=== PATIENT | female | born 1990 | race Caucasian/White ===

== ENCOUNTER → 2018-03-17 | Outpatient (CLI) | payer BC ==
[~2018-03-17] MED LIST: /MOM400 PO; ACET50TA PO; ANUS2.5C2 EXT; DOCU10ELUD PO; IBUP600T26 PO; PRENTAB16 PO
--- NOTE | 2018-03-17 12:51 | REP ---
Obstetric sonography: History: Supervision of for anatomy. Findings: Scanning through the gravid uterus demonstrates a viable single intrauterine gestation in a footling breech lie. motion is observed and heart rate is recorded at 150 beats per minute. A posterior grade 0 placenta is seen without evidence of previa or abruption. Amniotic fluid is subjectively normal. Closed cervical length measures 4.1 cm. No extrauterine abnormalities observed. Myometrial contractions during the examination render it difficult to evaluate the inferior edge of the placenta in relation to the internal cervical os. Closed cervical length is 4.1 cm Facial profile is seen but nose and lips are less than optimally seen due to position. Four-chamber heart, outflow tract views, and diaphragm visualization is less than optimal as well. The following additional anatomic structures are identified in the fetus and felt to be unremarkable: cranium, choroid plexus, cavum, cerebellum and posterior fossa, lungs, left-sided stomach, abdominal wall cord insertion, three-vessel umbilical cord, kidneys and bladder, spine, upper and lower extremities. Biometry chart: BPD 4.0 cm = 18 weeks 1 day Head circumference 14.5 cm = 17 weeks 5 days Abdominal circumference 12.4 cm = 18 weeks 0 days Femur length 2.5 cm = 17 weeks 5 days Humeral length 2.5 cm = 18 weeks 1 day HC/AC ratio normal 1.17. Cephalic index normal 0.77. Estimated weight 213 grams, 0 pounds 7 ounces, 42nd percentile for 18 weeks 0 days. Impression: Viable single intrauterine gestation at 18 weeks 0 days by today's composite sonographic criteria. MAYO by today's sonography August 18, 2018. anatomic survey less than complete as above due to position. Footling breech. Uterine myometrial contractions during the exam. Electronically Signed by Sanchez Delvalle MD 03/17/2018 07:14 P
== END ==
LOC: M RAD 09:26
PROVIDERS: ATTEND Obstetrics & Gynecology
DX: Z34.82 Encounter for supervision of other normal pregnancy, second trimester (principal)

== ENCOUNTER → 2018-04-06 | Outpatient (CLI) | payer BC ==
[2018-04-06 14:44] LABS: ALT/SGPT 33 U/L (12-78); BILIRUBIN,TOTAL 0.3 MG/DL (0.2-1.0); CREATININE FOR GFR 0.45 MG/DL (0.55-1.30); GLOMERULAR FILTRATION RATE > 60.0 (>60); URIC ACID 3.8 MG/DL (2.6-6.0)
[2018-04-06 15:18] LABS: TOTAL PROTEIN,RANDOM URINE 20.2 MG/DL (0.0-12.0)
[2018-04-06 15:21] LABS: LDH LACTATE DEHYDROGENASE 145 U/L (84-246)
== END ==
LOC: M SMT 09:43
PROVIDERS: ATTEND Advanced Practice Midwife
DX: Z34.82 Encounter for supervision of other normal pregnancy, second trimester (principal)

== ENCOUNTER → 2018-04-14 | Outpatient (CLI) | payer BC ==
--- NOTE | 2018-04-14 14:16 | REP ---
OB ULTRASOUND: Real-time sonographic evaluation of the gravid uterus is performed. There is a single living intrauterine gestation. The estimated gestational age is 22 weeks 0 days, EDC 08/18/2018. Today's measurements indicate appropriate growth. BPD 54 mm = 22 weeks 2 days, 57th percentile HC 201 mm = 22 weeks 1 day, 56th percentile AC 173 mm = 22 weeks 2 days, 56th percentile Femur length 37 mm = 21 weeks 4 days, 40th percentile HC/AC ratio 1.16 within normal range. Estimated weight 468 grams, 46th percentile. heart rate 163 beats per minute. Cervix closed and measures 4.6 cm in length. SEEN/GROSSLY UNREMARKABLE Lateral ventricles Yes Posterior fossa Yes Upper lip Yes Four-chamber heart Yes LVOT No RVOT Yes Stomach Yes Cord insertion Yes Three vessel cord Yes Kidneys Yes Bladder Yes Spine Yes position: Vertex. Placenta: Posterior and grade 0 with no previa or abruption. Amniotic fluid: Within normal limits. Electronically Signed by Nikko Garcia MD 04/14/2018 04:03 P
== END ==
LOC: M RAD 12:43
PROVIDERS: ATTEND Advanced Practice Midwife
DX: Z36.89 Encounter for other specified antenatal screening (principal); Z3A.22 22 weeks gestation of pregnancy

== ENCOUNTER → 2018-04-20 | Outpatient (REF) | payer BC ==
[2018-04-20 12:02] LABS: CREATININE CLEARANCE, URINE 204.4 ML/MIN (75-115); CREATININE, SERUM 0.4 MG/DL (0.6-1.0); CREATININE, URINE 43.6 MG/DL; TOTAL VOLUME, URINE 2700 ML; URINE TOTAL PROTEIN < 5.0 MG/DL (0-12)
== END ==
LOC: M LAB REF 10:41
PROVIDERS: ATTEND Advanced Practice Midwife
DX: O09.292 Supervision of pregnancy with other poor reproductive or obstetric history, second trimester (principal); Z3A.00 Weeks of gestation of pregnancy not specified

== ENCOUNTER → 2018-05-05 | Outpatient (CLI) | payer BC ==
--- NOTE | 2018-05-05 15:02 | REP ---
Clinical: Maternal hypertension. Growth evaluation. Comparison: 04/14/2018 . Findings: Examination demonstrates a single live intrauterine in cephalic presentation. motion is identified by technologist. Placenta is noted posterior and grade grade zero without evidence for placenta previa or abruption. Amniotic fluid volume is normal. Cervix measures 5.6 cm in length and appears closed. No evidence for nuchal cord. Gestational age by LMP 25 weeks 0 days with MAYO 08/18/2018 . Gestational age by current measurements 24 weeks 3 days with MAYO 08/22/2018 . FHR equals 146 beats per minute. BPD 6.2 cm 25 weeks 1 day HC 22.7 cm 24 weeks 5 days AC 20.1 cm 24 weeks 5 days FL 4.1 cm 23 weeks 2 days HL 4.0 cm 24 weeks 2 days HC/AC ratio 1.13 Estimated weight eight 674 grams ( 23rd percentile). Biophysical profile score: 6/8 (breathing - 0) Umbilical cord SD ratio: 3.35 (2.60 - 4.00) Anatomical assessment demonstrates normal structures including cranium, choroid plexus, cavum, cerebellum/posterior fossa, facial features, lungs, four-chamber heart, diaphragm, stomach, cord insertion/three-vessel cord, kidneys/bladder, spine, and extremities. Impression: Single live intrauterine in cephalic presentation demonstrating appropriate interval growth. 2. Biophysical profile score: 6/8 (breathing 0, tone 2, movement 2, AFV 2) Electronically Signed by Rasheed Melgar MD 05/05/2018 02:55 P
== END ==
LOC: M RAD 10:23
PROVIDERS: ATTEND Advanced Practice Midwife
DX: O09.292 Supervision of pregnancy with other poor reproductive or obstetric history, second trimester (principal); O10.012 Pre-existing essential hypertension complicating pregnancy, second trimester; Z3A.24 24 weeks gestation of pregnancy

== ENCOUNTER → 2018-05-12 | Outpatient (CLI) | payer BC ==
--- NOTE | 2018-05-12 11:50 | REP ---
Clinical: well-being. Comparison: 05/03/2018 . Findings: Examination demonstrates a single live intrauterine in breech presentation. motion is identified by technologist. Placenta is noted posterior and grade grade 1 without evidence for placenta previa or abruption. Amniotic fluid volume is normal. Cervix measures 4.0 cm in length and appears closed. No evidence for nuchal cord. Gestational age by LMP 26 weeks 0 days with MAYO 08/18/2018 . Gestational age by current measurements 26 weeks 0 days with MAYO 08/18/2018 . FHR equals 153 beats per minute. BPD 6.5 cm 26 weeks 2 days HC 23.6 cm 25 weeks 5 days AC 22.1 cm 26 weeks 5 days FL 4.6 cm 25 weeks 2 days HL 4.4 cm 26 weeks 2 days HC/AC ratio 1.07 Estimated weight 878 grams ( 43rd percentile). Biophysical profile score: 8/8 Amniotic fluid index: 14.7 cm The kidneys demonstrate mild bilateral renal pelviectasis with the right renal pelvis measuring 7.7 mm and the left renal pelvis measuring 6.3 mm. Impression: 1. Single live intrauterine in breech presentation demonstrating appropriate interval growth. 2. Mild renal pelviectasis. Electronically Signed by Rasheed Melgar MD 05/12/2018 11:41 A
== END ==
LOC: M RAD 10:37
PROVIDERS: ATTEND Advanced Practice Midwife
DX: O09.292 Supervision of pregnancy with other poor reproductive or obstetric history, second trimester (principal); O10.012 Pre-existing essential hypertension complicating pregnancy, second trimester; Z3A.26 26 weeks gestation of pregnancy

== ENCOUNTER → 2018-05-19 | Outpatient (CLI) | payer BC ==
[2018-05-19 11:45] LABS: BASO % 0.2 % (0.0-1.0); EOS # 0.1 10^3/uL (0.0-0.50); EOS % 0.8 % (0.0-3.0); HEMATOCRIT 38.1 % (36.0-47.0); HEMOGLOBIN 12.1 g/dl (12.0-15.5); LYMPH # 1.6 10^3/uL (1.5-6.5); LYMPH % 17.1 % (24.0-44.0); MEAN CORPUSCULAR HEMOGLOBIN 27.5 pg (27.0-33.0); MEAN CORPUSCULAR HGB CONC 31.8 g/dl (32.0-36.5); MEAN CORPUSCULAR VOLUME 86.6 fl (80.0-96.0); MONO # 0.4 10^3/uL (0.0-0.8); NEUTROPHILS # 7.2 10^3/uL (1.8-7.7); NEUTROPHILS % 77.6 % (36.0-66.0); PLATELET COUNT, AUTOMATED 232 10^3/uL (150-450); WHITE BLOOD COUNT 9.3 10^3/uL (4.0-10.0)
--- NOTE | 2018-05-19 12:28 | REP ---
OB ULTRASOUND, BIOPHYSICAL PROFILE: Real-time sonographic evaluation of the gravid uterus is performed utilizing transabdominal technique. There is a single living intrauterine gestation with an estimated gestational age 27 weeks, EDC 08/18/2018. Cervix is closed and measures 5.8 cm in length. heart rate 140 beats per minute. Amniotic fluid within normal limits, BUCK 15.1 with in normal range of 9.5 to 22.6. Biophysical profile score 8/8. S/D ratio 2.60 and RI 0.62 within normal range. position breech. Placenta is posterior and grade 1 with no previa or abruption. IMPRESSION: Biophysical profile score 8/8. Electronically Signed by Nikko Garcia MD 05/22/2018 11:08 A
== END ==
LOC: M RAD 09:37 → M LAB 09:37
PROVIDERS: ATTEND Advanced Practice Midwife
DX: O09.292 Supervision of pregnancy with other poor reproductive or obstetric history, second trimester (principal); Z3A.27 27 weeks gestation of pregnancy

== ENCOUNTER → 2018-05-26 | Outpatient (CLI) | payer BC ==
--- NOTE | 2018-05-26 16:34 | REP ---
BIOPHYSICAL PROFILE: 05/26/2018. Comparison 05/19/2018, 05/12/2018. Clinical history: Essential hypertension. Findings: By initial ultrasound she is 28 weeks with EDC of 08/18/2018. Today's study shows a single intrauterine gestation in vertex position. Cervix is 4.4 cm long and closed. Posterior grade 1 placenta without previa or abruption. Amniotic fluid volume is subjectively upper range of normal. Index measurement is 24.8 with a normal range of 9.4 - 22.8. Largest fluid pocket is 8.8 cm. On the previous study, BUCK was 15.1. The Doppler SD ratio of the mid cord umbilical artery shows S D ratio 2.7 with normal forward diastolic flow and a resistive index measurement 0.64, both normal. heart activity noted at 141. No anatomic survey was requested or performed. Biophysical profile: Breathing 2 Tone 2 Movement 2 AFV 2 Biophysical profile score 8/8. Impression: 1. Single intrauterine gestation in vertex presentation with closed 4.4 cm long cervix, visually upper range of normal amniotic fluid volume with an elevated index measurement of 24.8 with a normal range 9.4 - 22.8. Largest fluid pocket was 8.8 cm. Developing polyhydramnios suspected. 2. Normal cord Doppler SD ratio 2.78. Posterior grade 1 placenta without previa or abruption. heart rate 141 and regular. 3. Biophysical profile score: 8/8. The report being sent by fax now and the office being called. Electronically Signed by Darren Montilla MD 05/26/2018 06:43 P
== END ==
LOC: M RAD 10:18
PROVIDERS: ATTEND Advanced Practice Midwife
DX: O09.292 Supervision of pregnancy with other poor reproductive or obstetric history, second trimester (principal); O10.012 Pre-existing essential hypertension complicating pregnancy, second trimester; Z3A.00 Weeks of gestation of pregnancy not specified

== ENCOUNTER → 2018-05-29 | Outpatient (CLI) | payer BC | LOC: M LAB 07:47 | PROVIDERS: ATTEND Advanced Practice Midwife | DX: O09.292 Supervision of pregnancy with other poor reproductive or obstetric history, second trimester (principal); Z3A.00 Weeks of gestation of pregnancy not specified ==

== ENCOUNTER → 2018-06-02 | Outpatient (CLI) | payer BC ==
--- NOTE | 2018-06-02 15:04 | REP ---
OBSTETRIC SONOGRAPHY: HISTORY: Supervision of , growth study. Biophysical profile. Essential hypertension. Poor reproductive or obstetric history. FINDINGS: Scanning through the gravid uterus demonstrates a viable single intrauterine gestation in a cephalic lie. motion is observed, and heart rate is recorded at 144 beats per minute. A posterior grade 2 placenta is seen without evidence of previa or abruption. Amniotic fluid is subjectively normal. Closed cervical length is 3.7 cm, viewed transabdominally. No extrauterine abnormalities observed. There has been appropriate interval growth. Bilateral renal pelviectasis is seen measuring 5.9 mm on the left and 5.0 mm on the right. No other anatomic abnormality. The following additional anatomic structures are identified and felt to be unremarkable: cranium, choroid plexus, cavum, cerebellum and posterior fossa, face and profile, lungs, four-chamber heart with left and right ventricular outflow tract views, diaphragm, left-sided stomach, abdominal wall cord insertion, three-vessel umbilical cord, kidneys, and bladder. BIOMETRY CHART: BPD 7.0 cm = 28 weeks 2 days Head circumference 25.9 cm = 28 weeks 1 day Abdominal circumference 25.4 cm = 29 weeks 4 days Femur length 5.2 cm = 27 weeks 4 days Humeral length 4.9 cm = 28 weeks 5 days Cerebellar diameter 3.4 cm = 28 weeks 6 days HC/AC ratio normal 1.02 Cephalic index normal 0.76 Estimated weight 1264 grams, 2 pounds 12 ounces, 34th percentile for 29 weeks 0 days. BUCK normal 17.7 cm. Biophysical profile score 8 out of a possible 8. IMPRESSION: Viable single intrauterine gestation at 28 weeks 4 days by today's composite criteria. Expected gestational age estimate based on prior sonography is 29 weeks 0 days. MAYO by prior sonography August 18, 2018. Mild bilateral renal pyelectasis. urinary tracts sonography recommended. There has been appropriate interval growth. Electronically Signed by Sanchez Delvalle MD 06/02/2018 04:18 P
== END ==
LOC: M RAD 10:19
PROVIDERS: ATTEND Advanced Practice Midwife
DX: O09.292 Supervision of pregnancy with other poor reproductive or obstetric history, second trimester (principal); O10.012 Pre-existing essential hypertension complicating pregnancy, second trimester; O35.8XX0 Maternal care for other (suspected) fetal abnormality and damage, not applicable or unspecified; Z3A.28 28 weeks gestation of pregnancy

== ENCOUNTER → 2018-06-09 | Outpatient (CLI) | payer BC ==
--- NOTE | 2018-06-09 12:16 | REP ---
OB ULTRASOUND AND BIOPHYSICAL PROFILE: Real-time sonographic evaluation of the gravid uterus is performed. There is a single living intrauterine gestation with an estimated gestational age of 30 weeks 0 days with EDC 08/18/2018. heart rate 132 beats per minute. Amniotic fluid within normal limits, BUCK 13.5 within normal range of 9.0 to 23.4. Biophysical profile score 8/8. S/D ratio 2.4 is slightly below the normal range of 2.5-3.5. RI 0.60 is within normal range of 0.59 to 0.75. position is vertex. Placenta is posterior and grade 1 with no previa or abruption. Electronically Signed by Nikko Garcia MD 06/09/2018 03:36 P
== END ==
LOC: M RAD 10:29
PROVIDERS: ATTEND Advanced Practice Midwife
DX: O09.292 Supervision of pregnancy with other poor reproductive or obstetric history, second trimester (principal); O10.012 Pre-existing essential hypertension complicating pregnancy, second trimester; Z3A.30 30 weeks gestation of pregnancy

== ENCOUNTER → 2018-06-16 | Outpatient (CLI) | payer BC ==
[~2018-06-16] MED LIST changes: -/MOM400 PO; -ACET50TA PO; -DOCU10ELUD PO; +DOCU5LIQ PO; +MAPA500T17 PO; +MILK10SU PO
--- NOTE | 2018-06-16 13:09 | REP ---
OB ULTRASOUND, BIOPHYSICAL PROFILE: Real-time sonographic evaluation of the gravid uterus performed. There is a single living intrauterine gestation. Estimated gestational age is 31 weeks 0 days. EDC 08/18/2018. Cervix is closed and measures 4.5 cm in length. heart rate 146 beats per minute. Amniotic fluid within normal limits, BUCK 10.9 within normal range of 8.8 to 23.8. Biophysical profile score 8/8. S/D ratio 2.10 is below normal range of 2.5 to 3.5, RI 0.52 is below normal range of 0.59 to 0.75. position is breech. Placenta posterior and fundal and grade 1 with no previa or abruption. Electronically Signed by Nikko Garcia MD 06/16/2018 04:19 P
== END ==
LOC: M RAD 10:26
PROVIDERS: ATTEND Advanced Practice Midwife
DX: O09.292 Supervision of pregnancy with other poor reproductive or obstetric history, second trimester (principal); O10.012 Pre-existing essential hypertension complicating pregnancy, second trimester; Z3A.31 31 weeks gestation of pregnancy

== ENCOUNTER → 2018-06-23 | Outpatient (CLI) | payer BC ==
--- NOTE | 2018-06-23 11:49 | REP ---
OB ULTRASOUND: Real-time sonographic evaluation of the gravid uterus is performed. There is a single living intrauterine gestation. Estimated gestational age is 32 weeks 0 days, EDC 08/18/2018. Today's measurements indicate appropriate growth. BPD 80 mm = 32 weeks 0 days, 51st percentile HC 290 mm = 31 weeks 6 days, 49th percentile AC 283 mm = 32 weeks 2 days, 55th percentile Femur length 61 mm = 31 weeks 6 days, 47th percentile HC/AC ratio 1.03 within normal range. Estimated weight 901 grams, 45th percentile. Cervix is closed and measures 4.5 cm in length. heart rate 143 beats per minute. Amniotic fluid within normal limits, BUCK 21.9 within normal range of 8.6-24.2. Biophysical profile score 8/8. S/D ratio 2.06 below normal range of 2.5 to 3.5. RI 0.51 below normal range of 0.59-0.75. Visualized anatomy today includes lateral ventricles, posterior fossa, upper lip, four chamber heart, stomach, and kidneys which are all grossly unremarkable. position vertex. Placenta posterior and fundal and grade 1 to 2 with no previa or abruption. Electronically Signed by Nikko Garcia MD 06/23/2018 05:00 P
== END ==
LOC: M RAD 10:01
PROVIDERS: ATTEND Advanced Practice Midwife
DX: O09.292 Supervision of pregnancy with other poor reproductive or obstetric history, second trimester (principal); O10.012 Pre-existing essential hypertension complicating pregnancy, second trimester; Z3A.32 32 weeks gestation of pregnancy

== ENCOUNTER → 2018-06-30 | Outpatient (CLI) | payer BC ==
--- NOTE | 2018-06-30 11:43 | REP ---
Obstetric ultrasound for biophysical profile: There is a single intrauterine gestation in a vertex presentation. The heart rate is 132 beats per minute. Cervix measures 4.5 cm length. The placenta is posterior / fundal without previa or abruptio and is grade 1- 2 maturity. Gestational age by the first ultrasound is 33 weeks 0 days/MAYO 08/18/2018. Gestational age by LMP is 33 weeks 0 days/MAYO 08/18/2018. Subjectively the amniotic fluid volume is normal. Amniotic fluid index measures 14.0 (8.3 - 24.5). biophysical profile: Breathing 2.0 Movement 2.0 Tone 2.0 AFV 2.0 Total 8.0 / 8.0 Umbilical artery Doppler, mid cord: S/D ratio 2.37 (2.30-3.30) Resistive Index 0.58 (0.59-0.75 Diastolic Velocity 23.5 (>10 cm/sec) Electronically Signed by Nikko Alston MD 06/30/2018 11:35 A
== END ==
LOC: M RAD 10:22
PROVIDERS: ATTEND Advanced Practice Midwife
DX: O09.292 Supervision of pregnancy with other poor reproductive or obstetric history, second trimester (principal); O10.012 Pre-existing essential hypertension complicating pregnancy, second trimester; Z3A.33 33 weeks gestation of pregnancy

== ENCOUNTER → 2018-07-07 | Outpatient (CLI) | payer BC ==
[~2018-07-07] MED LIST changes: +GASTROGRAFIN SOLUTION 30ML (Q9963) As Ordered ONE
--- NOTE | 2018-07-07 11:08 | REP ---
Limited obstetric sonography: History: growth study. Biophysical profile. Supervision of . Findings: Scanning through the gravid uterus demonstrates a viable single intrauterine gestation in a breech lie. Placenta is fundal grade 2 without evidence of previa or abruption. Closed cervical length measured transabdominally is 4.6 cm. heart rate is recorded at 147 beats per minute. Amniotic fluid is subjectively normal. BUCK is normal at 14.1 cm. Biophysical profile score is eight out of a possible eight. SD ratio in the umbilical cord artery by Doppler is normal at 2.61. Electronically Signed by Sanchez Delvalle MD 07/07/2018 11:00 A
== END ==
LOC: M RAD 09:59
PROVIDERS: ATTEND Advanced Practice Midwife
DX: O09.292 Supervision of pregnancy with other poor reproductive or obstetric history, second trimester (principal); O10.012 Pre-existing essential hypertension complicating pregnancy, second trimester; Z3A.00 Weeks of gestation of pregnancy not specified
CPT/HCPCS: 76815; 76819; 76820; Q9963

== ENCOUNTER → 2018-07-14 | Outpatient (CLI) | payer BC ==
[~2018-07-14] MED LIST changes: -GASTROGRAFIN SOLUTION 30ML (Q9963) As Ordered ONE
--- NOTE | 2018-07-14 17:15 | REP ---
REASON: Followup OB ultrasound for growth and maternal hypertension. Multiple ultrasonographic images of the gravid uterus show a single living intrauterine gestation in the cephalic presentation. Doppler interrogation of the heart shows a heart rate of 141 beats per minute. The placenta is posterior and not low lying. The subjective amniotic fluid volume is within normal limits. The calculated amniotic fluid index is 9.01 with an expected range 7.9 to 24.9. The cervix measures 4.9 cm in length and is closed. There is elevation of the maternal adnexal spaces showed no abnormalities. Doppler interrogation of the umbilical artery shows an AB ratio of 2.19. This is within normal range. biophysical profile: 2 breathing. 2 movement. 2 tone. 2 amniotic fluid volume giving a sum total of 8/8. BPD 8.6 cm 34 weeks 4 days HC 30.9 cm 34 weeks 3 days AC 30.5 cm 34 weeks 3 days FL 6.7 cm 34 weeks 2 days The estimated weight is 2427 grams which is at the 38th percentile for a 35 week 0 day gestational age. IMPRESSION:Single living intrauterine gestation as described above with an estimated gestational age of 34 weeks 3 days via composite criteria and estimated date of delivery 08/22/2018 by today's exam. Electronically Signed by Dragan De Jesus DO 07/17/2018 09:48 A
== END ==
LOC: M RAD 10:35
PROVIDERS: ATTEND Advanced Practice Midwife
DX: O09.292 Supervision of pregnancy with other poor reproductive or obstetric history, second trimester (principal); O10.012 Pre-existing essential hypertension complicating pregnancy, second trimester; Z3A.35 35 weeks gestation of pregnancy

== ENCOUNTER → 2018-07-18 | Outpatient (CLI) | payer BC | LOC: M SMT 08:29 | PROVIDERS: ATTEND Advanced Practice Midwife | DX: O24.410 Gestational diabetes mellitus in pregnancy, diet controlled (principal); Z3A.00 Weeks of gestation of pregnancy not specified ==

== ENCOUNTER → 2018-07-18 | Outpatient (REF) | payer BC | LOC: M LAB REF 13:09 | PROVIDERS: ATTEND Advanced Practice Midwife | DX: O24.410 Gestational diabetes mellitus in pregnancy, diet controlled (principal) ==

== ENCOUNTER → 2018-07-21 | Outpatient (CLI) | payer BC ==
--- NOTE | 2018-07-21 15:01 | REP ---
REASON: Maternal hypertension. Multiple sonographic images of the gravid uterus show a single living intrauterine gestation in the cephalic presentation. Doppler interrogation of the heart shows a heart rate of 140 beats per minute. The cervix measures 3.7 cm in length and is closed. The subjective amniotic fluid volume is within normal limits. The calculated amniotic fluid index is 18.9 with an expected range 7.7 to 24.9. Doppler interrogation of the umbilical artery shows an A/B ratio of 1.95. This is within the normal range. biophysical profile score is 2 for breathing, 2 for movement, 2 for tone, and 2 for amniotic fluid volume giving a sum total of 8 out of 8. The placenta is posterior and not low lying. IMPRESSION: Limited OB ultrasound as described above. Electronically Signed by Dragan De Jesus DO 07/21/2018 03:05 P
== END ==
LOC: M RAD 10:56
PROVIDERS: ATTEND Advanced Practice Midwife
DX: O09.292 Supervision of pregnancy with other poor reproductive or obstetric history, second trimester (principal); O10.012 Pre-existing essential hypertension complicating pregnancy, second trimester; Z3A.00 Weeks of gestation of pregnancy not specified

== ENCOUNTER 2018-07-28 14:47 | Inpatient (IN) | payer BC ==
[2018-07-28] VITALS (12 sets, daily range): BP systolic 123–162; BP diastolic 73–94
[~2018-07-28] VITALS: Ht 161.3 cm; Wt 93.7 kg
[2018-07-28 17:27] LABS: HEMATOCRIT 35.1 % (36.0-47.0); HEMOGLOBIN 11.2 g/dl (12.0-15.5); MEAN CORPUSCULAR HGB CONC 31.9 g/dl (32.0-36.5); MEAN CORPUSCULAR VOLUME 81.4 fl (80.0-96.0); PLATELET COUNT, AUTOMATED 231 10^3/uL (150-450); RED BLOOD COUNT 4.31 10^6/uL (4.00-5.40); WHITE BLOOD COUNT 9.2 10^3/uL (4.0-10.0)
[2018-07-28] MEDS: miSOPROStol 50 MCG 1/2 TAB (S0191) PO SCH ×2 (17:51→22:11)
--- NOTE | 2018-07-28 18:00 | HPE ---
DATE OF ADMISSION: 07/28/2018 Domiitla is a 28-year-old 4, para 2-1-0-2. She is at 37 weeks gestation, estimated date of confinement (EDC) of 08/18/2018 based on the second trimester ultrasound. She presents to labor and delivery today for induction of labor per consult with Dr. Carl Daily due to chronic hypertension and A1 gestational diabetes and a prior history of stillborn fetus at 25 weeks. Her testing has been reassuring throughout her . She does deny vaginal bleeding and leakage of fluid as well as regular painful contractions. The fetus has been active. Her care was initiated at [facility] in the second trimester. course complicated by a history of a stillborn fetus, chronic hypertension, A1 gestational diabetes. She did have polyhydramnios, which has resolved. OBSTETRICAL HISTORY: 1. October 2009, 25-week male vaginal delivery of stillborn fetus. 2. October 2010, 41 weeks 8 pounds male, spontaneous vaginal delivery following an induction. 3. February 2012, 41 weeks, 7 pounds 4 ounces female, spontaneous vaginal delivery following induction. OBSTETRIC LABORATORIES: O+, antibody screen negative. Rubella nonimmune, VDRL nonreactive. Urine culture no growth. Hepatitis B surface antigen negative, HIV negative. Hepatitis C antibody nonreactive. Gonorrhea and chlamydia negative. Her quad screen was negative. Gestational diabetic screening elevated at 163. Her 3-hour glucose tolerance test abnormal, fasting 75, 1-hour 160, 2-hour 166 and 3-hour 136. Group B Streptococcus (GBS) is negative. Pre-eclamptic labs have been reassuring throughout her care. PAST MEDICAL HISTORY: Childhood varicella. SURGERY: Ankle surgery. FAMILY HISTORY: Diabetes, thyroid dysfunction. SOCIAL HISTORY: The patient is . Her is at bedside and he is supportive. She is a nonsmoker. No alcohol. No drug use. Denies any history of any sexually transmitted infections and denies history of abuse, physical, sexual and emotional allergies. ALLERGIES: No known drug allergies. CURRENT MEDICATIONS: - vitamins OBJECTIVE: Temperature 95, pulse 88, respirations 16, blood pressure is 143/94. She is alert and oriented times three and she is smiling and talkative. heart rate is 135 with moderate variability, positive accelerations, negative decelerations. There is no pattern of regular contractions. Her abdomen is gravid, cephalic presentation. Estimated weight 2900 grams. STERILE VAGINAL EXAMINATION: Fingertip thick, ballottable, posterior, moderate texture. Bloody show with exam. ASSESSMENT: Intrauterine at 37 weeks. heart rate category one, A1 gestational diabetes, chronic hypertension, history of stillborn fetus. PLAN: Admit the patient to labor and delivery per consult with Dr. Carl Daily. Routine labs. Out of bed ad edwin. Regular diet at this time. The patient does desire an epidural when she is in active labor. The plan to start misoprostol 50 mcg by mouth for cervical ripening. Following cervical ripening, intravenous (IV) Pitocin and artificial rupture of membranes (AROM). I did review risks, benefits and alternatives related to this induction of labor. The patient and her have had all of their questions answered and desire to proceed with induction. She has been verbally consented for emergency surgery and blood products if necessary. I do anticipate cervical ripening.
[2018-07-29] VITALS (45 sets, daily range): BP systolic 112–165; BP diastolic 56–88
[2018-07-29] MEDS: miSOPROStol 50 MCG 1/2 TAB (S0191) PO SCH (02:22)
[2018-07-29] MEDS ORDERED: OXYTOCIN DRIP 30 UNITS in APPROPRIATE DILUENT 1 EA IV SCH (06:45)
[2018-07-29] MEDS: LR 1,000 ML IV SCH ×3 (08:22→21:43)
[2018-07-29 14:03] LABS: HEMATOCRIT 35.1 % (36.0-47.0); HEMOGLOBIN 11.2 g/dl (12.0-15.5); MEAN CORPUSCULAR HGB CONC 31.9 g/dl (32.0-36.5); MEAN CORPUSCULAR VOLUME 81.6 fl (80.0-96.0); PLATELET COUNT, AUTOMATED 214 10^3/uL (150-450); WHITE BLOOD COUNT 9.9 10^3/uL (4.0-10.0)
[2018-07-29] MEDS ORDERED: FENTANYL 2MCG/ML ROPIVACAINE 0.2% IN 0.9% NACL 100ML IVBAG As Ordered ONE (14:10)
[2018-07-29] MEDS ORDERED: REFRIGERATOR IV KEYS XX PRN (15:15)
[2018-07-29] MEDS ORDERED: NALOXONE INJ 0.4 MG/1 ML VIAL (J2310) IV PRN (15:15)
[2018-07-29] MEDS ORDERED: ONDANSETRON 4MG/2ML VIAL (J2405) IV PRN (15:15)
[2018-07-29] MEDS ORDERED: EPIDURAL COMMENT XX SCH (15:15)
[2018-07-29] MEDS ORDERED: LACTATED RINGER'S 1000 ML IV PRN (15:15)
[2018-07-29] MEDS ORDERED: EPIDURAL/PCA KEYS XX PRN (15:15)
[2018-07-29] MEDS ORDERED: diphenhydrAMINE INJ 50MG/ML VIAL (J1200) IV PRN (15:15)
[2018-07-29] MEDS ORDERED: ePHEDrine SULFATE 25 MG/5 ML(5MG/ML) SYRINGE IV PRN (15:15)
[2018-07-29] MEDS: FENTANYL/ROPIVACAINE/NACL BAG 100 ML EPIDURAL SCH ×2 (15:51→23:53)
--- NOTE | 2018-07-29 16:01 | NUR ---
Progress note S: Comfortable with epidural O: NX=544/70 P=71 AF NAD Abd: NT, gravid SVE: 1 cm/80%/-2 posterior moderate FHT: Cat. I toco: q2-3 minutes, moderate A/P 28 yo at 37 1/7 weeks, induction day#2, with HTN, A1GDM Pt received 3 doses total of Misoprostol overnight Now on Pitocin Cook's Catheter placed with 40 cc saline Carl Daily MD
[2018-07-30] VITALS (18 sets, daily range): BP systolic 96–157; BP diastolic 51–80
[2018-07-30] MEDS ORDERED: OXYTOCIN 30 UNITS IN 0.9% NaCl 500ML IV BAG (J2590) As Ordered ONE (04:29)
[2018-07-30] MEDS ORDERED: METHYLERGONOVINE MALEATE 0.2 MG TAB PO PRN (04:45)
[2018-07-30] MEDS ORDERED: IBUPROFEN 800 MG TAB PO PRN (04:45)
[2018-07-30] MEDS ORDERED: DOCUSATE SODIUM 100 MG CAP PO PRN (04:45)
[2018-07-30] MEDS ORDERED: ACETAMINOPHEN 500 MG TAB PO PRN (04:45)
[2018-07-30] MEDS ORDERED: DIBUCAINE 1% OINTMENT 30GM TOP PRN (04:45)
[2018-07-30] MEDS ORDERED: MEASLES,MUMPS,RUBELLA VACCINE INJ (MMR-II) (90707) SC SCH (04:45)
[2018-07-30] MEDS ORDERED: ONDANSETRON 4MG/2ML VIAL (J2405) IV PRN (04:45)
[2018-07-30] MEDS ORDERED: OXYTOCIN DRIP 30 UNITS in APPROPRIATE DILUENT 1 EA IV ONE (04:45)
[2018-07-30] MEDS ORDERED: RHOGAM 300 MCG (1500 IU) INJ (J2790) IM SCH (04:45)
--- NOTE | 2018-07-30 05:44 | DN ---
DATE OF DELIVERY: 07/30/2018 PREDELIVERY DIAGNOSES: 37 weeks labor, chronic hypertension, gestational diabetes. POSTDELIVERY DIAGNOSIS: Delivered. PROCEDURE: Spontaneous vaginal delivery. SHOE STAINER: Dr. Carl Daily ANESTHESIA: Epidural. ESTIMATED BLOOD LOSS: 300 mL. FINDINGS: 5 pound, 15 ounce, 2704 grams male . : 8 and 9. DELIVERY SUMMARY: After approximately one minute of second stage, the patient had spontaneous delivery of a 5 pound, 15 ounce male infant. scores 8 and 9. Epidural anesthesia. Loose nuchal cord times one was reduced manually. The shoulders delivered with ease. The infant cried immediately and was handed to the mother. The cord was doubly clamped and cut. The placenta delivered spontaneously and appeared to be in tact. The patient received intravenous (IV) pitocin immediately after delivery of the placenta. There were no vaginal lacerations present. There were no sponges to count.
[2018-07-30] MEDS: PRENATAL VITAMINS CHEWABLE TABLET PO SCH (08:26)
[2018-07-31 05:53] VITALS: BP 108/64
[2018-07-31] MEDS: PRENATAL VITAMINS CHEWABLE TABLET PO SCH (09:03)
[2018-07-31] MEDS ORDERED: MAPA500T2 PO (13:19)
[2018-07-31] MEDS ORDERED: PRENTAB9 PO (13:19)
[2018-07-31] MEDS ORDERED: IBUP-1114 PO (13:19)
== END 2018-07-31 14:45 | disposition home or self-care (01) | DRG 560 ==
LOC: M LDI 14:47 → M OBS 07-30 06:33
PROVIDERS: ADMIT Advanced Practice Midwife; ATTEND Advanced Practice Midwife
PROC: 10E0XZZ Delivery of Products of Conception, External Approach (ICD-10-PCS; principal; 2018-07-30)
DX: O10.92 Unspecified pre-existing hypertension complicating childbirth (principal); O24.419 Gestational diabetes mellitus in pregnancy, unspecified control; Z37.0 Single live birth; Z3A.37 37 weeks gestation of pregnancy; O69.82X0 Labor and delivery complicated by other cord entanglement, without compression, not applicable or unspecified

== ENCOUNTER → 2019-12-06 | Outpatient (CLI) | payer BC ==
[~2019-12-06] MED LIST changes: +IBUP-1114 PO; +MAPA500T2 PO; +OXYC1TAB23 PO; +PRENTAB9 PO
[2019-12-06 13:48] LABS: BASO % 0.3 % (0.0-1.0); EOS # 0.1 10^3/uL (0.0-0.5); EOS % 1.2 % (0.0-3.0); HEMATOCRIT 40.5 % (36.0-47.0); HEMOGLOBIN 13.1 g/dl (12.0-15.5); LYMPH # 1.4 10^3/uL (1.5-5.0); LYMPH % 22.5 % (24.0-44.0); MEAN CORPUSCULAR HEMOGLOBIN 27.9 pg (27.0-33.0); MEAN CORPUSCULAR HGB CONC 32.3 g/dl (32.0-36.5); MEAN CORPUSCULAR VOLUME 86.4 fl (80.0-96.0); MONO # 0.3 10^3/uL (0.0-0.8); MONO % 4.6 % (0.0-5.0); NEUTROPHILS # 4.3 10^3/uL (1.5-8.5); NEUTROPHILS % 70.9 % (36.0-66.0); PLATELET COUNT, AUTOMATED 237 10^3/uL (150-450); RED BLOOD COUNT 4.69 10^6/uL (4.00-5.40)
[2019-12-06 13:53] LABS: ALBUMIN 3.2 GM/DL (3.2-5.2); ALT/SGPT 14 U/L (12-78); BILIRUBIN,TOTAL 0.3 MG/DL (0.2-1.0); BLOOD UREA NITROGEN 5 MG/DL (7-18); CALCIUM LEVEL 9.5 MG/DL (8.5-10.1); CARBON DIOXIDE LEVEL 25 MEQ/L (21-32); CHLORIDE LEVEL 104 MEQ/L (98-107); GLOMERULAR FILTRATION RATE > 60.0 (>60); GLUCOSE CHALLENGE TEST 1 HOUR 191 MG/DL (LESS THAN 140); GLUCOSE, FASTING 191 MG/DL (70-100); LDH LACTATE DEHYDROGENASE 127 U/L (84-246); POTASSIUM SERUM 3.5 MEQ/L (3.5-5.1); SODIUM LEVEL 136 MEQ/L (136-145)
[2019-12-06 14:08] LABS: CREATININE,RANDOM URINE 32.5 MG/DL; TOTAL PROTEIN,RANDOM URINE 8.2 MG/DL (0.0-12.0)
[2019-12-06 14:43] LABS: HEPATITIS C VIRUS ABY INDEX 0.1 INDEX (<0.8); HIV 1&2 SCREEN CENTAUR NEGATIVE (NEGATIVE)
== END ==
LOC: M PLALAB 09:34
PROVIDERS: ATTEND Obstetrics & Gynecology
DX: O09.291 Supervision of pregnancy with other poor reproductive or obstetric history, first trimester (principal); Z3A.00 Weeks of gestation of pregnancy not specified

== ENCOUNTER → 2019-12-06 | Outpatient (CLI) | payer BC ==
--- NOTE | 2019-12-11 16:27 | REP ---
FIRST TRIMESTER OBSTETRICAL ULTRASOUND CLINICAL: Dating and viability. TECHNIQUE: Transabdominal first trimester obstetrical ultrasound with color Doppler evaluation. FINDINGS: Ultrasound examination demonstrates a single live early intrauterine . [place]-rump length (CRL) of 7.7 cm corresponds to 13 weeks 5 days gestational age with estimated date of delivery 06/07/2020. heart rate equals 167 beats per minute. The amniotic fluid volume is subjectively normal. The cervix measures 3.9 cm in length and appears closed. Posterior grade 0 placenta noted without obvious previa. IMPRESSION: Single live intrauterine measuring at 13 weeks 5 days gestational age. Complete anatomical assessment should be performed at 19-20 weeks. MTDD
== END ==
LOC: M WHC 08:58
PROVIDERS: ATTEND Obstetrics & Gynecology
DX: Z36.87 Encounter for antenatal screening for uncertain dates (principal); Z3A.13 13 weeks gestation of pregnancy

== ENCOUNTER 2020-01-02 16:22 | Day surgery (SDC) | payer BC ==
[~2020-01-02] VITALS: Ht 160 cm; Wt 93.4 kg
[~2020-01-02 16:22] MED LIST changes: -OXYC1TAB23 PO
[2020-01-02] MEDS ORDERED: DOXYCYCLINE HYCLATE 100MG/10ML VIAL As Ordered ONE (17:30)
[2020-01-02] MEDS ORDERED: DOXYCYCLINE HYCLATE 100 MG in D5W MINI-BAG PLUS 100 ML IV ONE (17:45)
[2020-01-02 17:53] LABS: HEMATOCRIT 40.7 % (36.0-47.0); HEMOGLOBIN 13.1 g/dl (12.0-15.5); MEAN CORPUSCULAR HEMOGLOBIN 27.4 pg (27.0-33.0); MEAN CORPUSCULAR HGB CONC 32.2 g/dl (32.0-36.5); MEAN CORPUSCULAR VOLUME 85.1 fl (80.0-96.0); PLATELET COUNT, AUTOMATED 234 10^3/uL (150-450); RED BLOOD COUNT 4.78 10^6/uL (4.00-5.40)
[2020-01-02] MEDS ORDERED: METHYLERGONOVINE MALEATE 0.2 MG/ML VIAL (J2210) As Ordered ONE (18:25)
[2020-01-02] MEDS ORDERED: KETOROLAC 60MG 2ML VIAL As Ordered ONE (18:26)
[2020-01-02] MEDS ORDERED: ONDANSETRON 4MG/2ML VIAL As Ordered ONE (18:26)
[2020-01-02] MEDS ORDERED: dexameTHASONE 4 MG/ML 1ML VIAL (J1100 PER 1MG) As Ordered ONE (18:26)
[2020-01-02] MEDS ORDERED: SEVOFLURANE INHAL SOLN 250 ML BTL As Ordered ONE (18:26)
[2020-01-02] MEDS ORDERED: fentaNYL 100 MCG/2 ML INJECTION (J3010) As Ordered ONE ×2 (18:26→19:03)
[2020-01-02] MEDS ORDERED: MIDAZOLAM INJ 2MG/2ML VIAL (J2250 PER 1MG) As Ordered ONE (18:26)
[2020-01-02] MEDS ORDERED: LIDOCAINE 2% 100MG/5ML SDV (FOR ANES.) As Ordered ONE (18:26)
[2020-01-02] MEDS ORDERED: METOCLOPRAMIDE INJ 10MG/2ML VIAL (J2765 PER 1) As Ordered ONE (18:26)
[2020-01-02] MEDS ORDERED: propofoL 200 MG/20 ML VIAL As Ordered ONE ×2 (18:26→18:47)
[2020-01-02] MEDS ORDERED: ALBUTEROL 6.7GM INHALER **FOR ANES. CART/OMNICELL ONLY As Ordered ONE (18:46)
--- NOTE | 2020-01-02 20:05 | REPVR ---
PROCEDURE INFORMATION: Exam: US Pelvis Limited, Transabdominal Exam date and time: 01/02/2020 7:53 PM Age: 30 years old Clinical indication: Device placement; Other: In or during dnc; Additional info: Suction d TECHNIQUE: Imaging protocol: Real-time transabdominal pelvic ultrasound with image documentation. Limited exam. COMPARISON: OBS LIMITED US 01/02/2020 9:52 AM FINDINGS: The exam is limited, with only 4 images provided. No gross retained parts are demonstrated, and the endometrium contains no obvious fluid. No uterine perforation is demonstrated. IMPRESSION: Limited exam without gross retained products or uterine perforation demonstrated. Consider follow-up. Electronically signed by: Doc Prieto On 01/02/2020 20:05:44 PM
[2020-01-02] MEDS ORDERED: OXYC1TAB23 PO (20:08)
--- NOTE | 2020-01-02 20:17 | ROOPDOC ---
[facility] Report Of Operation Report of Operation DATE OF PROCEDURE: 01/02/2020 PREPROCEDURE DIAGNOSES: Late first trimester/early second trimester miscarriage, missed . POSTPROCEDURE DIAGNOSES: Same. PROCEDURE: Suction D&C. SURGEON: Jayme Santos DO FACOG PHOTO LAB SPECIALIST: none ANESTHESIA: General via LMA ESTIMATED BLOOD LOSS: Approximately 800 mL. IV FLUIDS REPLACED: 1600 mL LR UOP: in and out cath, 200 mL COMPLICATIONS: none. SPECIMENS: products of conception, intrauterine tissue. PREOPERATIVE / PROPHYLACTIC ANTIBIOTIC: Doxycycline 100mg IV x1. INTRAOPERATIVE FINDINGS/REMARKS: Pelvic ultrasound was done intraoperatively to confirm that the intrauterine cavity was empty and absent of any products of conception at the conclusion of the case. . Also, there was no evidence of uterine perforation. DESCRIPTION OF PROCEDURE: The patient was counseled, consented on the risks, benefits, indications and alternatives procedure. Informed consent was obtained. She was taken to the operating room with an IV running and placed on the operating table in dorsal supine position. Gen. anesthesia was administered and the airway was secured without any difficulty. She was prepared and draped in the normal sterile fashion. She was placed in the high lithotomy position. A time out was performed per protocol. The bladder was drained with a sterile in and out catheter. Sterile speculum was placed with good visualization of the cervix. The cervix was grasped with a single-tooth tenaculum at the anterior lip and downward traction was applied. The cervix was sequentially dilated with Hegar dilators up to a #12. A size10 curved Vacurette was placed trans-cervically into the intrauterine cavity. Suction was activated. Tissue and blood return was consistent with products of conception. Ring forceps and polyp forceps were used to remove residual tissue/ parts. The size 11 curved Vacurette was then placed transcervically into the intrauterine cavity and suction was applied, until there was minimal blood and tissue return . After removal of the Vacurette, a sharp curettage was performed with minimal tissue and blood return. Minimal bleeding from the cervical os was noted. The patient's vitals were normal and stable. Given the gestational age and the presence of well-formed parts, I decided to bring in the ct scan special procedures technologist to do an official ul trasound. Transabdominal ultrasound confirmed that the intrauterine cavity was empty. There was no evidence of any calcified parts. The stripe was thin and homogeneous, from the cervix to the fundus. The decision was made to conclude the procedure. Single-tooth tenaculum was removed from the cervix and the tenaculum sites were noted to be hemostatic. Again, minimal bleeding from the cervical os was noted. All instruments were removed from the vagina. Sponge and instrument counts were correct per protocol. The patient was transferred to the PACU in good and stable condition. Jayme Santos DO FACOG. JAYME SANTOS DO Jan 02, 2020 20:17
[2020-01-02 20:52] LABS: HEMATOCRIT 34.2 % (36.0-47.0); MEAN CORPUSCULAR HEMOGLOBIN 27.3 pg (27.0-33.0); MEAN CORPUSCULAR HGB CONC 31.6 g/dl (32.0-36.5); MEAN CORPUSCULAR VOLUME 86.6 fl (80.0-96.0); PLATELET COUNT, AUTOMATED 189 10^3/uL (150-450); RED BLOOD COUNT 3.95 10^6/uL (4.00-5.40); WHITE BLOOD COUNT 12.3 10^3/uL (4.0-10.0)
[2020-01-02 21:14] LABS: HEMOGLOBIN 10.8 g/dl (12.0-15.5)
[2020-01-02] MEDS ORDERED: LR 1,000 ML IV SCH (21:30)
[2020-01-02] MEDS ORDERED: DOXYCYCLINE HYCLATE 100MG TABLET PO ONE (21:30)
[2020-01-02 21:40] VITALS: BP 132/69
== END 2020-01-02 21:40 | disposition home or self-care (01) ==
LOC: M SDC 16:22
PROVIDERS: ATTEND Obstetrics & Gynecology
DX: O02.1 Missed abortion (principal)
CPT/HCPCS: 36415; 59820; 76856; 85027; 86850; 86900; 86901; 88305; J1100; J1885; J2210; J2250; J2405; J2765; J3010; U0002

== ENCOUNTER → 2020-01-02 | Outpatient (CLI) | payer BC ==
--- NOTE | 2020-01-02 10:22 | REP ---
INDICATION: O02.1 MISSED OBORTION/BUCK COMPARISON: 12/06/2019 TECHNIQUE: Transabdominal obstetrical ultrasound with color Doppler evaluation. FINDINGS: Fetus measuring 6.3 cm in craniocaudal length corresponds to 12 weeks 5 days gestational age without motion and without cardiac activity. Findings are compatible with demise. No gross uterine or adnexal abnormalities noted. No pelvic free fluid. IMPRESSION: Findings consistent with demise at 12 weeks 5 days age. <Electronically signed by Rasheed Melgar > 01/02/20 [id number]
== END ==
LOC: M WHC 09:44
PROVIDERS: ATTEND Advanced Practice Midwife
DX: O02.1 Missed abortion (principal)

== ENCOUNTER → 2020-05-27 | Outpatient (REF) | payer BC ==
[~2020-05-27] MED LIST changes: +OXYC1TAB23 PO
[2020-05-27 16:01] LABS: ALT/SGPT 16 U/L (12-78); BILIRUBIN,TOTAL 0.3 MG/DL (0.2-1.0); CREATININE FOR GFR 0.61 MG/DL (0.55-1.30); GLOMERULAR FILTRATION RATE > 60.0 (>60); GLUCOSE CHALLENGE TEST 1 HOUR 190 MG/DL (LESS THAN 140); HEMATOCRIT 39.8 % (36.0-47.0); LDH LACTATE DEHYDROGENASE 134 U/L (84-246); MEAN CORPUSCULAR HEMOGLOBIN 23.8 pg (27.0-33.0); MEAN CORPUSCULAR HGB CONC 30.2 g/dl (32.0-36.5); PLATELET COUNT, AUTOMATED 272 10^3/uL (150-450); RED BLOOD COUNT 5.04 10^6/uL (4.00-5.40); URIC ACID 3.2 MG/DL (2.6-6.0); WHITE BLOOD COUNT 7.5 10^3/uL (4.0-10.0)
[2020-05-27 16:04] LABS: TOTAL PROTEIN,RANDOM URINE < 5.0 MG/DL (0.0-12.0)
[2020-05-27 16:51] LABS: HEPATITIS C VIRUS ABY INDEX < 0.0 INDEX (<0.8)
[2020-05-27 16:52] LABS: HIV 1&2 SCREEN CENTAUR NEGATIVE (NEGATIVE)
== END ==
LOC: M PLALAB 11:26
PROVIDERS: ATTEND Obstetrics & Gynecology
DX: Z86.32 Personal history of gestational diabetes (principal)

== ENCOUNTER → 2020-07-17 | Outpatient (CLI) | payer BC ==
--- NOTE | 2020-07-17 09:13 | REP ---
INDICATION: ANATOMY COMPARISON: None. TECHNIQUE: Transabdominal obstetrical ultrasound with color Doppler evaluation. FINDINGS: Examination demonstrates a single live intrauterine in variable presentation. motion is identified by technologist. Placenta is noted posterior and grade 1 without evidence for placenta previa or abruption. Amniotic fluid volume is normal. Cervix measures 3.4 cm in length and appears closed.. Gestational age by LMP 18 weeks 2 days with MAYO 12/16/2020. Gestational age by current measurements 18 weeks 5 days with MAYO 12/13/2020. FHR equals 156 beats per minute. BPD: 4.4 cm at 19 weeks 2 days HC: 15.9 cm at 18 weeks 5 days AC: 13.1 cm at 18 weeks 4 days FL: 2.6 cm at 18 weeks 0 days HL: 2.7 cm at 18 weeks 4 days HC/AC: 1.22 Estimated weight 237 grams (51stpercentile). Anatomical assessment demonstrates normal structures including cranium, choroid plexus, cavum, cerebellum/posterior fossa, lungs, four-chamber heart, diaphragm, stomach, cord insertion/three-vessel cord, kidneys/bladder, spine, and extremities. IMPRESSION: Single live intrauterine in variable presentation demonstrating appropriate interval growth. Limited evaluation of the facial features and cardiac ventricular outflow tracts due to positioning. <Electronically signed by Rasheed Melgar > 07/17/20 [id number]
== END ==
LOC: M WHC 08:03
PROVIDERS: ATTEND Advanced Practice Midwife
DX: Z36.89 Encounter for other specified antenatal screening (principal); Z3A.18 18 weeks gestation of pregnancy

== ENCOUNTER → 2020-08-14 | Outpatient (CLI) | payer BC ==
--- NOTE | 2020-08-14 12:12 | REP ---
INDICATION: F/U ANATOMY COMPARISON: 07/17/2020 TECHNIQUE: Transabdominal obstetrical ultrasound with color Doppler evaluation. FINDINGS: Examination demonstrates a single live intrauterine in cephalic presentation. motion is identified by technologist. Placenta is noted posterior/fundal and grade 1 without evidence for placenta previa or abruption. Amniotic fluid volume is normal. Cervix measures 4.4 cm in length and appears closed.. Gestational age by LMP and 1st U/S 22 weeks 2 days with MAYO 12/16/2020. Gestational age by current measurements 23 weeks 0 days with MAYO 12/11/2020. FHR equals 144 beats per minute. Estimated weight 560 grams (80thpercentile). Anatomical assessment demonstrates normal structures including facial profile, nose/lips, heart/ventricular outflow tract. IMPRESSION: Single live intrauterine in cephalic presentation demonstrating appropriate estimated weight. In conjunction with prior examination anatomical assessment is complete and normal. <Electronically signed by Rasheed Melgar > 08/14/20 [id number]
== END ==
LOC: M WHC 09:53
PROVIDERS: ATTEND Obstetrics & Gynecology
DX: O09.292 Supervision of pregnancy with other poor reproductive or obstetric history, second trimester (principal); Z3A.23 23 weeks gestation of pregnancy

== ENCOUNTER → 2020-09-12 | Outpatient (CLI) | payer BC ==
[2020-09-12 13:11] LABS: HEMATOCRIT 35.9 % (36.0-47.0); HEMOGLOBIN 11.1 g/dl (12.0-15.5); MEAN CORPUSCULAR HEMOGLOBIN 25.1 pg (27.0-33.0); MEAN CORPUSCULAR HGB CONC 30.9 g/dl (32.0-36.5); MEAN CORPUSCULAR VOLUME 81.2 fl (80.0-96.0); PLATELET COUNT, AUTOMATED 262 10^3/uL (150-450); RED BLOOD COUNT 4.42 10^6/uL (4.00-5.40); WHITE BLOOD COUNT 8.1 10^3/uL (4.0-10.0)
[2020-09-12 13:32] LABS: HEMOGLOBIN A1c 5.3 %
== END ==
LOC: M PLALAB 10:41
PROVIDERS: ATTEND Obstetrics & Gynecology
DX: O10.912 Unspecified pre-existing hypertension complicating pregnancy, second trimester (principal)

== ENCOUNTER → 2020-10-16 | Outpatient (CLI) | payer BC ==
--- NOTE | 2020-10-16 12:17 | REP ---
INDICATION: PRE EXISTING HYPERTENSION,GROWTH. COMPARISON: 07/17/2020 and 08/14/2020 TECHNIQUE: Multiple ultrasonographic images of the gravid uterus. FINDINGS: There is a single intrauterine gestation in a cephalic presentation. heart rate is 156 beats per minute. The placenta is posterior with grade 1 maturity. There is no placenta previa. Amniotic fluid index is 14.3 (8.7-23.9). The cervix measures 4.0 cm length. The composite ultrasound gestational age by the study today is 33 weeks 2 days with an MAYO of 11/12/2020. Gestational age by the 1st ultrasound is 31 weeks 2 days with an MAYO of 12/16/2020. Estimated weight is 2054 g/4 lb, 8 oz. This is the 85th percentile for 31 weeks 3 days. Review of growth graphs indicates normal interval growth from the prior studies. IMPRESSION: 33 week 2 day intrauterine gestation with normal interval growth. <Electronically signed by Nikko Alston > 10/16/20 [id number]
== END ==
LOC: M WHC 11:23
PROVIDERS: ATTEND Obstetrics & Gynecology
DX: O10.913 Unspecified pre-existing hypertension complicating pregnancy, third trimester (principal); Z3A.33 33 weeks gestation of pregnancy

== ENCOUNTER → 2020-11-12 | Outpatient (REF) | payer BC | LOC: M SFHCWAGY 16:45 | PROVIDERS: ATTEND Specialist | DX: O24.313 Unspecified pre-existing diabetes mellitus in pregnancy, third trimester (principal) ==

== ENCOUNTER → 2020-11-13 | Outpatient (CLI) | payer BC ==
--- NOTE | 2020-11-13 09:11 | REP ---
INDICATION: GROWTH/HYPERTENSION COMPARISON: 10/16/2020 TECHNIQUE: Transabdominal obstetrical ultrasound with color Doppler evaluation. FINDINGS: Examination demonstrates a single live intrauterine in cephalic presentation. motion is identified by technologist. Placenta is noted posterior and grade 2 without evidence for placenta previa or abruption. Amniotic fluid volume is normal. Cervix measures 3.5 cm in length and appears closed.. Selected gestational age: 35 weeks 2 days with MAYO 12/16/2020. Gestational age by current measurements 37 weeks 1 day with MAYO 12/03/2020. FHR equals 138 beats per minute. BPD: 9.3 cm at 37 weeks 4 days HC: 33.8 cm at 30 weeks 5 days AC: 33.5 cm at 37 weeks 2 days FL: 6.9 cm at 35 weeks 2 days HL: 6.3 cm at 36 weeks 3 days HC/AC: 1.01 Estimated weight 3100 grams (90thpercentile). BUCK: 13.5 cm Umbilical artery SD ratio: 2.26 IMPRESSION: Single live advanced gestation in cephalic presentation demonstrating upper limits of normal growth. No gross abnormalities are identified. <Electronically signed by Rasheed Melgar > 11/13/20 [id number]
== END ==
LOC: M WHC 08:22
PROVIDERS: ATTEND Obstetrics & Gynecology
DX: Z36.2 Encounter for other antenatal screening follow-up (principal); O10.913 Unspecified pre-existing hypertension complicating pregnancy, third trimester; Z3A.35 35 weeks gestation of pregnancy; Z87.59 Personal history of other complications of pregnancy, childbirth and the puerperium